=== PATIENT | female | born 1960 | race Caucasian/White ===

== ENCOUNTER 2024-12-08 06:29 | Day surgery (SDC) | payer OTHER ==
[2024-12-06 12:55] VITALS: BMI 25.7
[2024-12-08] MEDS ORDERED: LIDOCAINE HCL/PF 1% SDV 5ML VIAL ONE (07:31)
[2024-12-08] MEDS ORDERED: ACETAMINOPHEN 500 MG TABLET (FP) PO PRN (09:08)
[2024-12-08] MEDS: LIDOCAINE HCL 1% PRESERVATIVE FREE - 30ML VIAL IJ ONE ×3 (10:15)
[2024-12-08 10:55] VITALS: BP 129/77; PULSE 62; RESP 16; TEMP 97.8
== END 2024-12-08 11:38 | disposition home or self-care (01) ==
LOC: JASU-SURG 06:29
PROVIDERS: ATTEND Pain Medicine Pain Medicine
PROC: 01HY3MZ Insertion of Neurostimulator Lead into Peripheral Nerve, Percutaneous Approach (ICD-10-PCS; principal; 2024-12-08 09:30)
DX: G89.4 Chronic pain syndrome (principal)
CPT/HCPCS: 64555; C1778